=== PATIENT | female | born 1935 | race Caucasian/White ===

== ENCOUNTER 2020-06-30 12:17 | Emergency (ER) | payer MEDICARE ==
[~2020-06-30] VITALS: Ht 165.1 cm; Wt 62.0 kg
[2020-06-30 12:30] VITALS: BP 144/82
--- NOTE | 2020-06-30 12:54 | PHYS DOC ---
General Adult HPI: HPI: 85-year-old female past medical history significant for dementia, COPD, htn and atrial fibrillation (on no AC), presents to the ED with her son whom she lives, with concern for weakness and decreased appetite. Was recently treated for UTI, unsure name of abx after pt had some episodes of confusion/delirium (has since resolved). Son reports he came home after work and patient was still in same clothes from the day before. Is having difficulties making an appointment with Dr. Alen Shirley. No known trauma or fall. Ambulated with a walker but not active [id number]. Review of Systems: Review of Systems: ROS: Unreliable given pts' dementia Constitutional: Denies fever or chills Eyes: Denies change in visual acuity HENT: Denies nasal congestion or sore throat Respiratory: Denies cough or shortness of breath Cardiovascular: Denies chest pain or edema GI: Denies abdominal pain, nausea, vomiting, bloody stools or diarrhea : Denies dysuria Musculoskeletal: Denies back pain or joint pain Integument: Denies rash Neurologic: Denies headache, focal weakness or sensory changes Endocrine: Denies polyuria or polydipsia Lymphatic: Denies swollen glands Psychiatric: Denies depression or anxiety Physical Exam: PE: Constitutional: Well developed, well nourished, no acute distress, non-toxic appearance. HENT: Normocephalic, atraumatic, Eyes: EOMI, conjunctiva normal, no discharge. Neck: Normal range of motion, supple, Cardiovascular: S1/2 present, irregular rhythm Lungs & Thorax: Speaking in full sentences, bilateral equal chest rise, no tachypnea or increased work of breathing Abdomen: soft, no tenderness, Skin: Warm, dry, no erythema, no rash. [] Back: No tenderness, no CVA tenderness. [] Extremities: No tenderness, no cyanosis, no edema Neurologic: Alert , normal motor function, normal sensory function, no focal deficits noted. [] Psychologic: Affect normal, judgement normal, mood normal. [] EKG: EKG: [] Irregular rhythm, atrial fibrillation at 92 bpm, left axis deviation, normal intervals, T wave inversion V2, no ST elevations or ST depressions Radiology/Procedures: Radiology/Procedures: IMAGING REPORT Signed PATIENT: BECKY GODINEZ: [id number] : 1935 LOCATION: ER AGE: 85 SEX: F EXAM STATUS: REG ER ORD. PHYSICIAN: JASMYNE WHITING DO REASON: weak PROCEDURE: PORTABLE CHEST 1V Examination: PORTABLE CHEST 1V History: Reason: weak / Spl. Instructions: / History: Comparison/Correlation: 05/30/2020 2V chest x-ray exam Findings: Portable frontal view of the chest was obtained. Heart size is mildly enlarged but unchanged. No infiltrate or pneumothorax. Biapical pleural thickening is present. Pulmonary vasculature is within upper limits of normal. No focal infiltrate. No significant costophrenic angle blunting. Mild scoliosis of the lower thoracic spine noted. Impression: No infiltrate. Electronically signed by: Ba Patricia MD (06/30/2020 1:16 PM) [facility] DICTATED AND SIGNED BY: BA PATRICIA MD DATE: 06/30/20 1316 CC: ALEN SHIRLEY MD; JASMYNE WHITING DO ~MTH0 0 IMAGING REPORT Signed PATIENT: BECKY GODINEZOUNT: [id number] : 1935 LOCATION: ER AGE: 85 SEX: F EXAM STATUS: REG ER ORD. PHYSICIAN: JASMYNE WHITING DO REASON: ams PROCEDURE: CT HEAD WO CONTRAST CT HEAD INDICATION: Altered mental status COMPARISON: None Available. Exposure: One or more of the following individualized dose reduction techniques were utilized for this examination: 1. Automated exposure control 2. Adjustment of the mA and/or kV according to patient size 3. Use of iterative reconstruction technique TECHNIQUE: 5 mm contiguous axial images were obtained from the skull base to the vertex in both bone and soft tissue algorithm. FINDINGS: Mild bilateral periventricular white matter hypodensities likely chronic small vessel ischemic disease. No evidence of acute intracranial hemorrhage. No extra-axial fluid collections. No mass effect or midline shift. Ventricular size is appropriate. Basal cisterns are patent. No fractures identified.Cleaning-white differentiation is preserved.Globes and orbits are within normal limits. Paranasal sinuses and mastoid air cells are clear. IMPRESSION: No acute intracranial findings. Electronically signed by: Chaz Guzman MD (06/30/2020 1:29 PM) [id number] DICTATED AND SIGNED BY: CHAZ GUZMAN MD DATE: 06/30/20 132 CC: ALEN SHIRLEY MD; JASMYNE WHITING DO ~MTH0 0 Heart Score: Risk Factors: Risk Factors: DM, Current or recent (<one month) smoker, HTN, HLP, family history of CAD, obesity. Risk Scores: Score 0 - 3: 2.5% MACE over next 6 weeks - Discharge Home Score 4 - 6: 20.3% MACE over next 6 weeks - Admit for Clinical Observation Score 7 - 10: 72.7% MACE over next 6 weeks - Early Invasive Strategies Course & Med Decision Making: Course & Med Decision Making Pertinent Labs and Imaging studies reviewed. (See chart for details) Concern for NSTEMI in the setting of UTI, weakness, failure to thrive and anorexia. Patient with hyponatremia, hypokalemia, hypomagnesemia hypochloremia. Covid test is pending. No infiltrates on chest x-ray. Does not meet sirs criteria. CT of the head with no acute process or stroke. I spoke with patient's [employer] and guardian Casper her son who patient lives with. He requests that patient be DNR but agrees with transfer to [facility] for further medical work-up and cardiology evaluation, serial troponins. Patient excepted by Dr. Gonzalez, hospitalist. Isadora Disclaimer: Isadora Disclaimer: This electronic medical record was generated, in whole or in part, using a voice recognition dictation system. Departure Departure: Impression: Primary Impression: NSTEMI (non-ST elevated myocardial infarction) Additional Impressions: UTI (urinary tract infection) Electrolyte abnormality Disposition: 05 DC/TRF OTHER TYPE INSTITUTI (to [facility], Dr. Gonzalez) Admitting Physician: Other (Dr. Eliud Gonzalez) Condition: GUARDED Referrals: ALEN SHIRLEY MD (PCP) JASMYNE WHITING DO Jun 30, 2020 12:54
[2020-06-30] MEDS ORDERED: IV NORMAL SALINE 1,000ML 1,000 ML IV ONE (13:00)
[2020-06-30] MEDS ORDERED: AZITHROMYCIN 500 MG in IV NORMAL SALINE 250ML 250 ML IV ONE (13:00)
--- NOTE | 2020-06-30 13:06 | EKG ---
[address] [address] Test Date: 2020-06-30 Test Time: 12:46:45 Pat Name: BECKY GODINEZ Department: Room: Gender: F [employer]: DNENY : 1935 Requested By: JASMYNE WHITING Order Number: [id number] Reading MD: Measurements Intervals Mobile Rate: 92 P: 0 WY: 292 QRS: -66 QRSD: 96 T: 35 QT: 350 QTc: 438 Interpretive Statements SINUS RHYTHM ATRIAL PREMATURE COMPLEX(ES) PROLONGED WY INTERVAL ABNORMAL LEFT AXIS DEVIATION LEFT ANTERIOR FASCICULAR BLOCK INCOMPLETE RIGHT BUNDLE BRANCH BLOCK T ABNORMALITY IN ANTERIOR LEADS ABNORMAL ECG RI6.02 No previous ECG available for comparison
--- NOTE | 2020-06-30 13:19 | RAD ---
Examination: PORTABLE CHEST 1V History: Reason: weak / Spl. Instructions: / History: Comparison/Correlation: 05/30/2020 2V chest x-ray exam Findings: Portable frontal view of the chest was obtained. Heart size is mildly enlarged but unchanged. No infiltrate or pneumothorax. Biapical pleural thickening is present. Pulmonary vasculature is within upper limits of normal. No focal infiltrate. No significant costophrenic angle blunting. Mild scoliosis of the lower thoracic spine noted. Impression: No infiltrate. Electronically signed by: Ba Sotelo MD (06/30/2020 1:16 PM) [facility]
--- NOTE | 2020-06-30 13:32 | RAD ---
CT HEAD INDICATION: Altered mental status COMPARISON: None Available. Exposure: One or more of the following individualized dose reduction techniques were utilized for this examination: 1. Automated exposure control 2. Adjustment of the mA and/or kV according to patient size 3. Use of iterative reconstruction technique TECHNIQUE: 5 mm contiguous axial images were obtained from the skull base to the vertex in both bone and soft tissue algorithm. FINDINGS: Mild bilateral periventricular white matter hypodensities likely chronic small vessel ischemic disease. No evidence of acute intracranial hemorrhage. No extra-axial fluid collections. No mass effect or midline shift. Ventricular size is appropriate. Basal cisterns are patent. No fractures identified.Cleaning-white differentiation is preserved.Globes and orbits are within normal limits. Paranasal sinuses and mastoid air cells are clear. IMPRESSION: No acute intracranial findings. Electronically signed by: Chaz Guzman MD (06/30/2020 1:29 PM) [id number]
[2020-06-30 13:42] LABS: BASO % 1 % (0-3); EOS # 0.1 x10^3/uL (0.0-0.7); EOS % 1 % (0-3); HEMATOCRIT 36.4 % (36.0-47.0); HEMOGLOBIN 12.4 g/dL (12.0-15.5); LYMPH # 0.8 x10^3/uL (1.0-4.8); LYMPH % 8 % (24-48); MEAN CORPUSCULAR HEMOGLOBIN 31 pg (25-35); MEAN CORPUSCULAR HGB CONC 34 g/dL (31-37); MEAN CORPUSCULAR VOLUME 92 fL (79-100); MONO # 0.7 x10^3/uL (0.0-1.1); MONO % 7 % (0-9); NEUT # 8.1 x10^3uL (1.8-7.7); NEUT % 83 % (31-73); PLATELET COUNT 303 x10^3/uL (140-400); RED BLOOD COUNT 3.96 x10^6/uL (3.50-5.40); WHITE BLOOD COUNT 9.8 x10^3/uL (4.0-11.0)
[2020-06-30 13:53] LABS: CALCIUM 9.3 mg/dL (8.5-10.1); CREATININE 0.8 mg/dL (0.6-1.0); GFR 68.2; POTASSIUM 3.4 mmol/L (3.5-5.1)
[2020-06-30] MEDS ORDERED: IV NORMAL SALINE 50ML 50 ML ONE (14:00)
[2020-06-30] MEDS ORDERED: IV NORMAL SALINE 250ML 250 ML ONE (14:00)
[2020-06-30] MEDS ORDERED: AZITHROMYCIN 500 MG VIAL. IV ONE (14:01)
[2020-06-30] MEDS ORDERED: cefTRIAXone SODIUM 1 GM VIAL ONE (14:01)
[2020-06-30 14:08] LABS: DIRECT BILIRUBIN 0.2 mg/dL (0.0-0.2); MAGNESIUM 1.6 mg/dL (1.8-2.4); TOTAL BILIRUBIN 0.6 mg/dL (0.2-1.0); TOTAL PROTEIN 8.2 g/dL (6.4-8.2)
[2020-06-30 14:28] LABS: DIG 0.6 ng/dL (0.9-2.0)
[2020-06-30 15:36] LABS: BACTERIA,URINE MANY /HPF (0-FEW); BILIRUBIN,URINE NEG (NEG); CLARITY,URINE HAZY; COLOR,URINE YELLOW; GLUCOSE,URINE NEG (NEG); NITRITE,URINE POS (NEG); RBC,URINE 0 /HPF (0-2); UROBILINOGEN,URINE 0.2 mg/dL (0.2 mg/dL)
[2020-06-30 15:37] LABS: SQUAMOUS EPITHELIAL CELL,UR FEW /LPF
[2020-06-30] MEDS ORDERED: POTASSIUM CHLORIDE 20 MEQ TABLET.ER. PO ONE (16:00)
[2020-06-30] MEDS ORDERED: MAGNESIUM SULFATE 2GM 50 ML IV ONE (16:00)
[2020-06-30 17:03] LABS: BARBITURATES NEG (NEG); BENZODIAZEPINES NEG (NEG); CANNABINOIDS NEG (NEG); COCAINE NEG (NEG); METHADONE NEG (NEG); OPIATES NEG (NEG); PHENCYCLIDINE NEG (NEG)
[2020-06-30 17:07] LABS: AMPHETAMINE/METHAMPHETAMINE NEG (NEG)
--- NOTE | 2020-07-04 10:50 | NUR ---
IP: notified IP at [facility] of COVID result.
== END 2020-06-30 18:43 | disposition short-term general hospital (02) ==
LOC: ER 12:17
DX: I21.4 Non-ST elevation (NSTEMI) myocardial infarction (principal); N39.0 Urinary tract infection, site not specified; E87.8 Other disorders of electrolyte and fluid balance, not elsewhere classified; F03.90 Unspecified dementia, unspecified severity, without behavioral disturbance, psychotic disturbance, mood disturbance, and anxiety; J44.9 Chronic obstructive pulmonary disease, unspecified; I10 Essential (primary) hypertension; I48.91 Unspecified atrial fibrillation; Z20.828 Contact with and (suspected) exposure to other viral communicable diseases; Z87.440 Personal history of urinary (tract) infections
CPT/HCPCS: 36415; 70450; 71045; 80048; 80076; 80162; 80307; 81001; 82550; 83605; 83690; 83735; 83880; 84484; 85025; 85730; 87040; 87077; 87086; 87205; 93005; 96365; 96366; 96367; 96368; 99285; C9803; J0456; J0696; J3475; J7030; J7050; U0003